=== PATIENT | female | born 1950 | race Two or more races ===

== ENCOUNTER 2021-09-25 18:25 | Inpatient (IN) | payer OTHER ==
[~2021-09-25] VITALS: Ht 152.4 cm; Wt 85.3 kg
[2021-09-25] MEDS: POTASSIUM CL. PREMIX PERIPHER. 50 ML IV SCH (01:02)
--- NOTE | 2021-09-25 19:07 | NUR ---
IV LINE IS ESTABLISHED. BLOOD SPECIMEN COLLECTED AND SENT TO THE LAB. THE LINE IS SALINE LOCKED.
--- NOTE | 2021-09-25 19:09 | NUR ---
COVID SWAB DONE AND SENT TO THE LAB
--- NOTE | 2021-09-25 19:22 | NUR ---
REPORT GIVEN TO NURSE ROB FOR VÍCTOR
[2021-09-25] MEDS ORDERED: ALBUTEROL FS 2.5 MG/3 ML VIAL.NEB CONTNEB ONE (19:30)
[2021-09-25] MEDS ORDERED: IPRATROPIUM NEB FS 0.5 MG/2.5 ML AMPUL.NEB NEB ONE (19:30)
[2021-09-25] MEDS ORDERED: IPRATROPIUM NEB FS 0.5 MG/2.5 ML AMPUL.NEB ONE (19:32)
[2021-09-25] MEDS ORDERED: ALBUTEROL FS 2.5 MG/3 ML VIAL.NEB ONE (19:32)
[2021-09-25] MEDS ORDERED: CEFTRIAXONE 1GM BAG (ER ONLY) 50 ML IV ONE ×2 (20:00→20:05)
[2021-09-25] MEDS ORDERED: CLINDAMYCIN 600 MG in IV D5W 100 ML IV ONE (20:00)
[2021-09-25] MEDS ORDERED: IV NS 0.9% 1,000 ML BAG IV ONE (20:00)
[2021-09-25] MEDS ORDERED: CLINDAMYCIN PHOSPHATE IV 600 MG/4 ML VIAL ONE (20:05)
[2021-09-25 20:15] LABS: BASOPHILS # (AUTO) 0.1 K/uL (0.0-0.2); BASOPHILS % (AUTO) 0.5 % (0.0-2.0); EOSINOPHILS % (AUTO) 0.2 % (0.0-6.0); HEMATOCRIT 33 % (33-45); HEMOGLOBIN 10.5 g/dL (11.5-14.8); LYMPHOCYTES # (AUTO) 4.6 K/uL (0.8-4.8); LYMPHOCYTES % (AUTO) 25.6 % (20.0-44.0); MEAN CORPUSCULAR HGB CONC 32 g/dl (31.0-36.0); MEAN CORPUSCULAR VOLUME 85 fL (82-100); MONOCYTES # (AUTO) 0.2 K/uL (0.1-1.30); MONOCYTES % (AUTO) 1.1 % (2.0-12.0); NEUTROPHILS # (AUTO) 12.9 K/uL (1.8-8.9); NEUTROPHILS % (AUTO) 72.6 % (43.0-81.0); PLATELET COUNT (AUTO) 540 K/uL (150-450); RED BLOOD CELL COUNT(AUTO) 3.93 MIL/uL (4.0-5.2); WHITE BLOOD COUNT (AUTO) 17.8 K/uL (4.3-11.0)
[2021-09-25 20:19] LABS: D-DIMER 4.93 mg/L(FEU (0.17-0.50)
--- NOTE | 2021-09-25 20:20 | NUR ---
CALLED [facility] AND SPOKE TO RICHI.
--- NOTE | 2021-09-25 20:23 | NUR ---
DR SARKAR ON THE PHONE W/ DR ERWIN
[2021-09-25] MEDS ORDERED: IOHEXOL-350 100 ML VIAL IV ONE (21:02)
[2021-09-25] MEDS ORDERED: IV NS 0.9% 250 ML IV ONE (21:02)
--- NOTE | 2021-09-25 21:40 | NUR ---
CELINE RIVERA: [phone]
--- NOTE | 2021-09-25 22:16 | NUR ---
LACTIC ACID 12.9
[2021-09-25 22:47] LABS: ALKALINE PHOSPHATASE 84 U/L (46-116); CALCIUM, SERUM 8.5 mg/dL (8.5-10.1); CARBON DIOXIDE 20 mmol/L (21-32); CHLORIDE 96 mmol/L (98-107); CREATININE 1.1 mg/dL (0.6-1.3); GLUCOSE 169 mg/dL (74-106); SODIUM SERUM 134 mmol/L (136-145); TOTAL PROTEIN, SERUM 6.5 g/dL (6.4-8.2)
[2021-09-25] MEDS ORDERED: MAG HYDROX/AL HYDROX/SIMETH 30 ML UDC PO PRN (23:00)
[2021-09-25] MEDS ORDERED: Z GUARD REMEDY 4 OZ OINT TP PRN (23:00)
[2021-09-25] MEDS ORDERED: IV NS 0.9% 1,000 ML IV ONE (23:00)
[2021-09-25] MEDS ORDERED: ONDANSETRON HCL/PF 4 MG/2 ML VIAL IVP PRN (23:00)
[2021-09-25 23:14] LABS: POTASSIUM 2.6 mmol/L (3.5-5.1)
[2021-09-25] MEDS ORDERED: DEXTROSE 50%-WATER 50 ML DISP.SYRIN IV PRN (23:30)
[2021-09-25] MEDS ORDERED: POTASSIUM CHLORIDE 20 MEQ TAB.PRT.SR PO ONE (23:30)
--- NOTE | 2021-09-25 23:52 | NUR ---
ASSIGNED TO 120
[2021-09-26] MEDS ORDERED: PIPERACILLIN /TAZOBACTAM 4.5 G in IV D5W 50 ML IV SCH
[2021-09-26] MEDS ORDERED: POTASSIUM CL. PREMIX PERIPHER. 150 ML ONE (00:57)
[2021-09-26] MEDS ORDERED: POTASSIUM CHLORIDE 20 MEQ TAB.PRT.SR PO ONE (00:58)
[2021-09-26] MEDS ORDERED: ENOXAPARIN SODIUM 60 MG/0.6 ML DISP.SYRIN SQ ONE (01:00)
[2021-09-26] MEDS ORDERED: ZOSYN IVPB 4.5 G in IV D5W 50ml IV ONE (01:00)
--- NOTE | 2021-09-26 01:25 | NUR ---
PATIENT TRANSFERRED UNDER ACLS
[2021-09-26 01:30] VITALS: BP 159/69
[2021-09-26] MEDS ORDERED: POTASSIUM CHLORIDE 10 MEQ TABLET.SA PO ONE (01:30)
--- NOTE | 2021-09-26 01:30 | NUR ---
FORM SETTER NOTES, RECEIVED 71 YEAR OLD FEMALE ADMITTED FROM ER DEPARTMENT VIA STRETCHER ACCOMPANIED BY 2 NURSES, PATIENT UNDER MEDICAL SERVICES OF MATY RAJPUT NP, WITH ADMITTING DX ACUTE RESPIRATORY FAILURE, PATIENT A/O X4 ABLE TO VERBALIZE NEEDS AND CONCERNS, PATIENT BREATHING EVEN AND UNLABORED, WITH SLIGHTLY SOB, AT 5LPM VIA NC 933%, VS 159/69, 113, 24, 98.6, WHEN ATTACHED TO TELE MONITOR PATIENT SHOW SINUS TACHY 120S AT THIS TIME, AFEBRILE SKIN INTACT, WITH IV SITE IN RIGHT AC 20G, PATENT AND INTACT, KCL IV INFUSING, 2 MORE BAGS TO GIVE, S/R OF BED UP X2, BED LOCKED AND IN LOWER POSITION, CALL LIGHT W/I REACH, WILL CONTINUE TO MONITOR CLOSELY.
[2021-09-26] MEDS: POTASSIUM CL. PREMIX PERIPHER. 50 ML IV SCH ×2 (02:24→03:19)
[2021-09-26] MEDS ORDERED: PIPERACILLIN /TAZOBACTAM 2.25 G VIAL IV ONE (03:22)
[2021-09-26] MEDS: VANCOMYCIN 1.25 GM in IV D5W 250 ML IV ONE ×2 (03:29→06:02)
[2021-09-26] MEDS ORDERED: VANCOMYCIN 1 GM VIAL ONE (05:56)
--- NOTE | 2021-09-26 06:23 | NUR ---
RN CLOSING NOTES, PATIENT ASLEEP AT THIS TIME, AROUSES TO VERBALS STIMULI, A/O ABLE TO VERBALIZE NEEDS AND CONCERNS, NO SOB/ACUTE DISTRESS NOTED, CONT ON 5LPM VIA NC WITH O2 >94%, NO SIGNIFICANT CHANGE IN CONDITION, STILL SINUS TACHY WITH HR IN LOW 100S, PCR PENDING, ON ISOLATION PRECAUTIONS PER PROTOCOL, K+ REPLACED, ATB GIVEN AND FOR LACTIC ACID 5.8 AN ORDER FOR NS AT 100ML/HR, WILL CONTINUE TO MONITOR AND ENDORSE TO ONCOMING NURSE.
[2021-09-26] MEDS ORDERED: ISOS60TA72 PO (06:39)
[2021-09-26] MEDS ORDERED: METF-440 PO (06:39)
[2021-09-26] MEDS ORDERED: LEVO50TA8 PO (06:39)
[2021-09-26] MEDS ORDERED: LOSA50TA39 PO (06:39)
[2021-09-26] MEDS ORDERED: ALBU8.5H8 INH (06:39)
[2021-09-26] MEDS ORDERED: FLUT16SP16 BNOSTRILS (06:39)
[2021-09-26] MEDS ORDERED: ATOR10TA PO (06:39)
[2021-09-26] MEDS: IV NS 0.9% 1,000 ML IV PRN (07:04)
--- NOTE | 2021-09-26 07:20 | NUR ---
RN NOTE REPORT REC'D FROM BARBARA HENDERSON. PT IS IN BED. A/A/OX4. VERBALLY RESPONSIVE IN ROMANSH. IN NO ACUTE DISTRESS. BREATHING EVEN AND UNLABORED. DENIES PAIN OR NEED AT THIS TIME. IVF INFUSING WELL TO RAC. SINUS TACHY ON THE MONITOR. SAFETY AND ISOLATION PRECAUTIONS OBSERVED. CALL LIGHT WITHIN REACH. WILL CONTINUE TO MONITOR.
[2021-09-26] MEDS: BLOOD SUGAR DIAGNOSTIC 1 EACH STRIP IN SCH ×4 (08:10→22:30)
[2021-09-26 08:12] LABS: ALANINE AMINOTRANSFERASE 41 U/L (12-78); ASPARTATE AMINOTRANSFERASE 44 U/L (15-37); BILIRUBIN,TOTAL 0.2 mg/dL (0.2-1.0); UREA NITROGEN, BLOOD 13 mg/dL (7-18)
[2021-09-26] MEDS: PANTOPRAZOLE 40 MG TABLET.DR PO SCH (08:21)
[2021-09-26] MEDS: INSULIN REGULAR, HUMAN 100 UNIT/ML 3 ML VIAL SQ PRN ×4 (08:23→23:00)
[2021-09-26] MEDS ORDERED: ZOSYN IVPB 3.375 G in IV D5W 50ml IV SCH (10:00)
[2021-09-26] MEDS ORDERED: HYDR100T27 PO (10:07)
[2021-09-26] MEDS ORDERED: ASPI-1169 PO (10:07)
[2021-09-26] MEDS ORDERED: METO100T14 PO (10:07)
[2021-09-26] MEDS ORDERED: FERR325T23 PO (10:07)
[2021-09-26] MEDS ORDERED: PROP1DRO4 OP (10:07)
[2021-09-26] MEDS ORDERED: PANT40TA49 PO (10:07)
[2021-09-26 10:44] LABS: BASOPHILS # (AUTO) 0.1 K/uL (0.0-0.2); BASOPHILS % (AUTO) 0.2 % (0.0-2.0); EOSINOPHILS % (AUTO) 1.7 % (0.0-6.0); HEMATOCRIT 29 % (33-45); HEMOGLOBIN 9.2 g/dL (11.5-14.8); LYMPHOCYTES % (AUTO) 10.4 % (20.0-44.0); MEAN CORPUSCULAR HGB CONC 32 g/dl (31.0-36.0); MEAN CORPUSCULAR VOLUME 83 fL (82-100); MONOCYTES # (AUTO) 1.2 K/uL (0.1-1.30); MONOCYTES % (AUTO) 4.2 % (2.0-12.0); NEUTROPHILS # (AUTO) 23.8 K/uL (1.8-8.9); NEUTROPHILS % (AUTO) 83.5 % (43.0-81.0); PLATELET COUNT (AUTO) 432 K/uL (150-450); RED BLOOD CELL COUNT(AUTO) 3.43 MIL/uL (4.0-5.2); WHITE BLOOD COUNT (AUTO) 28.6 K/uL (4.3-11.0)
[2021-09-26] MEDS ORDERED: VIT B12 (11:23)
[2021-09-26] MEDS ORDERED: omega (11:23)
[2021-09-26 11:44] LABS: CREATININE 0.8 mg/dL (0.6-1.3); MAGNESIUM 1.4 mg/dL (1.8-2.4); POTASSIUM 3.8 mmol/L (3.5-5.1)
[2021-09-26] MEDS: ENOXAPARIN SODIUM 40 MG/0.4 ML DISP.SYRIN SQ SCH (13:07)
[2021-09-26] MEDS: CEFTRIAXONE 2 G in IV D5W 100 ML IV SCH (14:32)
[2021-09-26] MEDS: LOSARTAN POTASSIUM 50 MG TABLET PO SCH (17:00)
[2021-09-26] MEDS: FERROUS SULFATE (325 MG) 325 MG/TAB TABLET PO SCH (17:00)
[2021-09-26] MEDS: hydrALAZINE HCL 50 MG TABLET PO SCH (18:04)
[2021-09-26] MEDS: VANCOMYCIN 1 GM in IV D5W 250ml IV SCH (18:05)
[2021-09-26] MEDS: METFORMIN 500 MG TABLET PO SCH (18:06)
--- NOTE | 2021-09-26 18:49 | NUR ---
RN NOTE DR. MARKS NOTIFIED OF MAGNESIUM LEVEL 1.4. AWAITING ANSWER.
[2021-09-26] MEDS ORDERED: Magnesium 1GM/D5W 100ML PREMIX 100 ML IV SCH (19:00)
--- NOTE | 2021-09-26 19:02 | NUR ---
received a call from lab c/o weathers mg level drawn yesterday is 0.8,todays magnesium is 1.4.dr. martin notified and ordered 1 gram mg bolus.
--- NOTE | 2021-09-26 19:06 | NUR ---
RN NOTE PTS CONDITION UNCHANGED. A/A/OX4. AMBULATORY WITH ASSSIST. NO SOB. ON 3LP SAT 98%. ST ON MONITOR. DENIES ANY PAIN. NEEDS ATTENDED. SAFETY PRECAUTION OBSERVED. CALLED DTR TO BRING EYE DROPS MED RX DOESN'T CARRY THIS MED BUT NO ANSWER.
[2021-09-26] MEDS: IPRATROPIUM/ALBUTEROL INHALER IH SCH (19:30)
--- NOTE | 2021-09-26 19:50 | NUR ---
RN NOTE PT IS A/O X4 PASHTO SPEAKING, UNDERSTANDS VIETNAMESE MINIMAL. PT DENIES PAIN, SOB. ON 5L NC. PT IS ABLE TO AMBULATE. WITH ASSIST. IV SITE INTACT. RUNNING IVF ORDERED. ALL NEEDS ATTENDED. WILL CONT TO MONITOR. SAFETY MEASURES IN PLACE. BED LOCKED IN LOWEST POSITION. HOB ELEVATED SIDE RAILS UP X3. CALL LIGHT WITHIN REACH.
[2021-09-26 20:00] VITALS: BP 158/81
[2021-09-26] MEDS: METOPROLOL TARTRATE 50 MG TABLET PO SCH (20:33)
[2021-09-26 22:39] LABS: BILIRUBIN,URINE NEGATIVE (NEGATIVE); COLOR,URINE YELLOW (YELLOW); LEUKOCYTE ESTERASE ,URINE NEGATIVE (NEGATIVE); NITRITE, URINE NEGATIVE (NEGATIVE); PROTEIN,URINE NEGATIVE (NEGATIVE); UGLUCOSE NEGATIVE (NEGATIVE); UROBILINOGEN,URINE 0.2 EU/dL (0.2)
[2021-09-26 23:17] LABS: BAND % (MANUAL) 1 % (0.0-5.0); LYMPHOCYTES % (MANUAL) 10 % (16-48); MONOCYTES % (MANUAL) 8 % (0-11.0); NEUTROPHILS % (MANUAL) 81 (42-76)
[2021-09-27] VITALS: BP 145/82
--- NOTE | 2021-09-27 00:28 | NUR ---
REPORT GIVEN TO BEATRIZ FOR CONTINUATION OF CARE
--- NOTE | 2021-09-27 00:30 | NUR ---
RN NOTES, RECEIVED PATIENT FROM MARGRET JIMENEZ FOR CONTINUATION OF CARE, PATIENT ASLEEP AT 5LPM VIA NC WITH O2 >95%, NO SOB/ACUTE DISTRESS NOTED WII CONTINUE TO MONITOR CLOSELY.
[2021-09-27] MEDS: IPRATROPIUM/ALBUTEROL INHALER IH SCH ×4 (01:30→20:37)
[2021-09-27] MEDS: IV NS 0.9% 1,000 ML IV PRN ×2 (02:40→23:22)
[2021-09-27 04:00] VITALS: BP 152/72
[2021-09-27] MEDS: VANCOMYCIN 1 GM in IV D5W 250ml IV SCH (05:31)
--- NOTE | 2021-09-27 06:41 | NUR ---
RN CLOSING NOTES, PATIENT ASLEEP AT THIS TIME, AROUSES TO VERBALS STIMULI, NO SOB/ACUTE DISTRESS NOTED, CONT ON 5LPM VIA NC WITH O2 >95%, NO SIGNIFICANT CHANGE IN CONDITION DURING THE NIGHT, NSR IN TELE MONITOR WITH HR 80S AT THIS TIME, CONTINUE ON IVF ORDERED, PCR PENDING STILL PENDING, ISOLATION PRECAUTIONS PER PROTOCOL,WILL ENDORSE CONTINUITY OF CARE TO ONCOMING NURSE.
[2021-09-27] MEDS: BLOOD SUGAR DIAGNOSTIC 1 EACH STRIP IN SCH ×4 (07:37→21:44)
--- NOTE | 2021-09-27 07:45 | NUR ---
RN OPENING NOTES RECEIVED PT IN BED RESTING COMFORTABLY. NO SIGNS OF SOB OR DISTRESS. PT IS A/0 X4, INDONESIAN SPEAKING. PT IS ON 5L NC AND HAS R AC 20 G WITH NS AT 100CC/HR. ALL SAFETY MEASURES IN PLACE. BED IN LOWEST LOCKED POSITION, SIDE RAILS UP X 3, CALL LIGHT WITHIN REACH. WILL CONTINUE TO MONITOR.
[2021-09-27 07:47] LABS: CALCIUM, SERUM 8.9 mg/dL (8.5-10.1); CREATININE 0.7 mg/dL (0.6-1.3); POTASSIUM 3.1 mmol/L (3.5-5.1)
[2021-09-27] MEDS: PANTOPRAZOLE 40 MG TABLET.DR PO SCH ×2 (07:59→08:31)
[2021-09-27] MEDS: LEVOTHYROXINE SODIUM 50 MCG TABLET PO SCH (07:59)
[2021-09-27] MEDS: METFORMIN 500 MG TABLET PO SCH ×2 (07:59→17:26)
[2021-09-27 08:00] VITALS: BP 156/80
[2021-09-27] MEDS: METOPROLOL TARTRATE 50 MG TABLET PO SCH ×2 (08:22→21:44)
[2021-09-27] MEDS: LOSARTAN POTASSIUM 50 MG TABLET PO SCH ×2 (08:22→17:24)
[2021-09-27] MEDS: ASPIRIN 81 MG TAB.CHEW PO SCH (08:22)
[2021-09-27] MEDS: FERROUS SULFATE (325 MG) 325 MG/TAB TABLET PO SCH ×2 (08:22→17:24)
[2021-09-27] MEDS: hydrALAZINE HCL 50 MG TABLET PO SCH ×3 (08:23→17:23)
[2021-09-27] MEDS: ENOXAPARIN SODIUM 40 MG/0.4 ML DISP.SYRIN SQ SCH (08:25)
[2021-09-27] MEDS: INSULIN REGULAR, HUMAN 100 UNIT/ML 3 ML VIAL SQ PRN ×3 (08:26→18:18)
[2021-09-27] MEDS: FLUTICASONE PROPIONATE 16 GM BOTTLE NS SCH (08:30)
[2021-09-27] MEDS: POTASSIUM CHLORIDE 20 MEQ TAB.PRT.SR PO SCH ×2 (09:44→10:39)
[2021-09-27 12:00] VITALS: BP 138/76
--- NOTE | 2021-09-27 12:13 | NUR ---
RN NOTES NO INSULIN GIVEN. PT BS 80.
[2021-09-27 13:12] LABS: BASOPHILS # (AUTO) 0.2 K/uL (0.0-0.2); EOSINOPHILS % (AUTO) 0.7 % (0.0-6.0); HEMATOCRIT 27 % (33-45); HEMOGLOBIN 8.7 g/dL (11.5-14.8); LYMPHOCYTES # (AUTO) 2.2 K/uL (0.8-4.8); LYMPHOCYTES % (AUTO) 13.8 % (20.0-44.0); MEAN CORPUSCULAR HGB CONC 32 g/dl (31.0-36.0); MEAN CORPUSCULAR VOLUME 84 fL (82-100); MONOCYTES # (AUTO) 0.9 K/uL (0.1-1.30); MONOCYTES % (AUTO) 5.8 % (2.0-12.0); NEUTROPHILS # (AUTO) 12.7 K/uL (1.8-8.9); NEUTROPHILS % (AUTO) 78.7 % (43.0-81.0); PLATELET COUNT (AUTO) 336 K/uL (150-450); RED BLOOD CELL COUNT(AUTO) 3.21 MIL/uL (4.0-5.2); WHITE BLOOD COUNT (AUTO) 16.1 K/uL (4.3-11.0)
[2021-09-27] MEDS: CEFTRIAXONE 2 G in IV D5W 100 ML IV SCH (15:03)
[2021-09-27 16:00] VITALS: BP 157/73
[2021-09-27] MEDS: POLYVINYL ALCOHOL 15 ML BOTTLE OP SCH ×2 (17:23→20:37)
--- NOTE | 2021-09-27 18:19 | NUR ---
RN NOTES INSULIN NOT GIVEN. PT BS 108.
--- NOTE | 2021-09-27 19:08 | NUR ---
RN CLOSING NOTE PATIENT RESTING AND COMFORTABLE AT THIS TIME, AROUSES TO VERBAL STIMULI, NO SOB/ACUTE DISTRESS NOTED, CONT ON 5L NC WITH O2 >95%, NO SIGNIFICANT CHANGE IN CONDITION DURING SHIFT, NSR IN TELE MONITOR, CONTINUE ON IVF ORDERED, PCR STILL PENDING, ISOLATION PRECAUTIONS PER PROTOCOL, ALL SAFETY MEASURES IN PLACE, BED IN LOWEST LOCKED POSITION, CALL LIGHT WITHIN REACH, SIDE RAILS UP X 3. WILL ENDORSE TO ONCOMING ASSEMBLY STOCK SUPERVISOR NURSE.
--- NOTE | 2021-09-27 19:50 | NUR ---
TELE/RN OPENING NOTE RECEIVED PATIENT RESTING IN BED. AWAKE, ALERT AND ORIENTED X 4. ABLE TO MAKE NEEDS KNOWN. DENIES PAIN AT THIS TIME. CONTINUES ON O2 5L VIA NC WITH NO S/SX OF RESPIRATORY DISTRESS NOTED. IV ACCESS TO RIGHT AC #20G INTACT, PATENT AND SALINE LOCKED. CONTINUES ON IV ABX. PATIENT IS AMBULATORY WITH ASSIST. CONTINUES ON TELE MONITOR WITH CURRENT READING SR. CALL LIGHT WITHIN REACH. ASPIRATION, FALL AND SAFETY PRECAUTIONS MAINTAINED. WILL CONTINUE TO MONITOR.
[2021-09-27 20:00] VITALS: BP 167/68
[2021-09-28] VITALS (7 sets, daily range): BP systolic 134–157; BP diastolic 65–81
[2021-09-28] MEDS: IPRATROPIUM/ALBUTEROL INHALER IH SCH ×4 (02:16→20:00)
--- NOTE | 2021-09-28 06:50 | NUR ---
TELE/RN CLOSING NOTE PATIENT CURRENTLY RESTING IN BED. AWAKE, ALERT AND ORIENTED X 4. ABLE TO MAKE NEEDS KNOWN. DENIES PAIN AT THIS TIME. CONTINUES ON O2 5L VIA NC WITH NO S/SX OF RESPIRATORY DISTRESS NOTED. IV ACCESS TO RIGHT AC #20G INTACT, PATENT AND SALINE LOCKED. CONTINUES ON IV ABX. PATIENT IS AMBULATORY WITH ASSIST. CONTINUES ON TELE MONITOR WITH CURRENT READING SR. CALL LIGHT WITHIN REACH. ASPIRATION, FALL AND SAFETY PRECAUTIONS MAINTAINED. WILL ENDORSE PLAN OF CARE TO ONCOMING SHIFT.
--- NOTE | 2021-09-28 07:54 | NUR ---
RN NOTE RECEIVED PT AWAKE IN BED, ALERT AND VERBALLY RESPONSIVE. WITH O2 @5L VIA NC, NOT IN RESPIRATORY DISTRESS WITH O2 SAT OF 99. RAC G20 IN PLACE WITH IVF RUNNING AT 100CC/HR., TOLERATING WELL. WILL CONTINUE TO MONITOR. ALL SAFETY MEASURES IN PLACE.
[2021-09-28] MEDS: LEVOTHYROXINE SODIUM 50 MCG TABLET PO SCH (08:00)
[2021-09-28] MEDS: BLOOD SUGAR DIAGNOSTIC 1 EACH STRIP IN SCH ×4 (08:00→20:53)
[2021-09-28] MEDS: PANTOPRAZOLE 40 MG TABLET.DR PO SCH ×2 (08:00→09:23)
--- NOTE | 2021-09-28 08:27 | NUR ---
per [facility] pcr negative.
[2021-09-28] MEDS: FLUTICASONE PROPIONATE 16 GM BOTTLE NS SCH (09:03)
[2021-09-28] MEDS: POLYVINYL ALCOHOL 15 ML BOTTLE OP SCH ×4 (09:04→21:26)
[2021-09-28] MEDS: hydrALAZINE HCL 50 MG TABLET PO SCH ×3 (09:05→18:01)
[2021-09-28] MEDS: METFORMIN 500 MG TABLET PO SCH ×2 (09:05→18:03)
[2021-09-28] MEDS: ASPIRIN 81 MG TAB.CHEW PO SCH (09:05)
[2021-09-28] MEDS: FERROUS SULFATE (325 MG) 325 MG/TAB TABLET PO SCH ×2 (09:05→18:02)
[2021-09-28] MEDS: LOSARTAN POTASSIUM 50 MG TABLET PO SCH ×2 (09:06→18:01)
[2021-09-28] MEDS: ENOXAPARIN SODIUM 40 MG/0.4 ML DISP.SYRIN SQ SCH (09:08)
[2021-09-28] MEDS: METOPROLOL TARTRATE 50 MG TABLET PO SCH ×2 (09:23→21:25)
[2021-09-28] MEDS: IV NS 0.9% 1,000 ML IV PRN (11:02)
[2021-09-28] MEDS: CEFTRIAXONE 2 G in IV D5W 100 ML IV SCH (14:48)
--- NOTE | 2021-09-28 15:59 | NUR ---
RN NOTE PT TRANSFERRED TO MED/SURG [facility], IN STABLE CONDITION.CONTINUES ON O2 @3L VIA NC. NOT IN RESPIRATORY DISTRESS. V/S WNL. ENDORSED TO BARBARA MAYER. PT WAS ACCOMPANIED BY DAUGHTER .
--- NOTE | 2021-09-28 16:00 | NUR ---
RN NOTES PATIENT AWAKE IN BED RESTING, AWAKE. A/O X4. CANE FROM [place]. NO S/S OF PAIN NOTED AT THIS TIME. ON 5L OXYGEN VIA NC, NO DISTRESS OR SHORTNESS OF BREATH NOTED. IV RAC #20G, INTACT AND PATENT. BELONGING LIST CHECKED, SKIN ASSESSMENT DONE, V/S STABLE. FALL AND SAFETY MEASURES IN PLACE, BED IN LOW AND LOCK POSITION, CALL LIGHT AND TABLE WITHIN EASY REACH, SIDE RAILS UP X2. WILL CONTINUE TO MONITOR.
[2021-09-28] MEDS: ACETAMINOPHEN 325 MG TABLET PO PRN (19:52)
--- NOTE | 2021-09-28 19:56 | NUR ---
RN CLOSING NOTES PATIENT AWAKE IN BED RESTING, AWAKE. A/O X4. NO S/S OF PAIN NOTED AT THIS TIME. ON 5L OXYGEN VIA NC, NO DISTRESS OR SHORTNESS OF BREATH NOTED. IV RAC #20G, INTACT AND PATENT. FALL AND SAFETY MEASURES IN PLACE, BED IN LOW AND LOCK POSITION, CALL LIGHT AND TABLE WITHIN EASY REACH, SIDE RAILS UP X2. WILL ENDORSE TO PSYCH SPECIALIST.
[2021-09-28] MEDS: INSULIN REGULAR, HUMAN 100 UNIT/ML 3 ML VIAL SQ PRN (22:25)
[2021-09-29] VITALS: BP 124/66
[2021-09-29] MEDS: IPRATROPIUM/ALBUTEROL INHALER IH SCH ×3 (01:30→13:24)
[2021-09-29 04:10] VITALS: BP 134/72
[2021-09-29] MEDS: IV NS 0.9% 1,000 ML IV PRN (06:27)
[2021-09-29] MEDS: PANTOPRAZOLE 40 MG TABLET.DR PO SCH ×2 (06:39→09:00)
[2021-09-29] MEDS: LEVOTHYROXINE SODIUM 50 MCG TABLET PO SCH (06:40)
[2021-09-29] MEDS: BLOOD SUGAR DIAGNOSTIC 1 EACH STRIP IN SCH ×4 (06:40→22:09)
[2021-09-29 07:31] LABS: BASOPHILS % (AUTO) 0.5 % (0.0-2.0); EOSINOPHILS % (AUTO) 3.4 % (0.0-6.0); HEMATOCRIT 25 % (33-45); HEMOGLOBIN 8.5 g/dL (11.5-14.8); LYMPHOCYTES # (AUTO) 2.2 K/uL (0.8-4.8); LYMPHOCYTES % (AUTO) 23.3 % (20.0-44.0); MEAN CORPUSCULAR HGB CONC 34 g/dl (31.0-36.0); MEAN CORPUSCULAR VOLUME 83 fL (82-100); MONOCYTES # (AUTO) 0.9 K/uL (0.1-1.30); MONOCYTES % (AUTO) 9.9 % (2.0-12.0); NEUTROPHILS # (AUTO) 5.9 K/uL (1.8-8.9); NEUTROPHILS % (AUTO) 62.9 % (43.0-81.0); PLATELET COUNT (AUTO) 387 K/uL (150-450); RED BLOOD CELL COUNT(AUTO) 3.07 MIL/uL (4.0-5.2); WHITE BLOOD COUNT (AUTO) 9.3 K/uL (4.3-11.0)
[2021-09-29 07:48] LABS: CALCIUM, SERUM 8.6 mg/dL (8.5-10.1); CREATININE 0.7 mg/dL (0.6-1.3); POTASSIUM 2.9 mmol/L (3.5-5.1)
[2021-09-29 07:56] LABS: MAGNESIUM 1.5 mg/dL (1.8-2.4); PHOSPHORUS 3.3 mg/dL (2.5-4.9)
--- NOTE | 2021-09-29 08:00 | NUR ---
RN OPENING NOTE PT IN BED RESTING. NO SIGNS OF DISTRESS. NO COMPLAINT OF PAIN OR NAUSEA. IV LINE CHECKED AND FLUSHES WELL. SAFETY MEASURES IN PLACE. SIDE RAILS RAISED. BED LOWERED. CALL LIGHT WITHIN REACH. WILL CONTINUE TO MONITOR.
[2021-09-29 08:36] VITALS: BP 148/79
[2021-09-29] MEDS: hydrALAZINE HCL 50 MG TABLET PO SCH ×3 (08:37→16:46)
[2021-09-29] MEDS: METFORMIN 500 MG TABLET PO SCH ×2 (08:37→17:32)
[2021-09-29] MEDS: ASPIRIN 81 MG TAB.CHEW PO SCH (08:38)
[2021-09-29] MEDS: FERROUS SULFATE (325 MG) 325 MG/TAB TABLET PO SCH ×2 (08:39→16:46)
[2021-09-29] MEDS: LOSARTAN POTASSIUM 50 MG TABLET PO SCH ×2 (08:39→16:46)
[2021-09-29] MEDS: METOPROLOL TARTRATE 50 MG TABLET PO SCH ×2 (08:40→21:22)
[2021-09-29] MEDS: ENOXAPARIN SODIUM 40 MG/0.4 ML DISP.SYRIN SQ SCH (08:51)
[2021-09-29] MEDS: FLUTICASONE PROPIONATE 16 GM BOTTLE NS SCH (09:00)
[2021-09-29] MEDS: POLYVINYL ALCOHOL 15 ML BOTTLE OP SCH ×4 (09:00→21:23)
[2021-09-29] MEDS: POTASSIUM CHLORIDE 20 MEQ TAB.PRT.SR PO SCH ×3 (09:42→11:30)
[2021-09-29] MEDS ORDERED: MAGNESIUM OXIDE 400 MG TABLET PO ONE (10:00)
[2021-09-29] MEDS: CEFTRIAXONE 2 G in IV D5W 100 ML IV SCH (15:39)
[2021-09-29 16:16] VITALS: BP 135/66
[2021-09-29] MEDS: ACETAMINOPHEN 325 MG TABLET PO PRN (18:01)
--- NOTE | 2021-09-29 18:31 | NUR ---
RN CLOSING NOTE PT IN BED RESTING. ALL NEEDS MET. PT IN COMFORTABLE POSITION. NO SIGNS OF DISTRESS. NO COMPLAINT OF PAIN OR NAUSEA. IV LINE INTACT. FLUSHES WELL. CALL LIGHT WITHIN REACH. BED LOWERED. SIDE RAILS RAISED. WILL GIVE REPORT TO NIGHT NURSE FOR VÍCTOR.
--- NOTE | 2021-09-29 19:30 | NUR ---
MS RN OPENING NOTE RECEIVED PATIENT IN BED. A/OX4. 2 FAMILY MEMBERS AT BEDSIDE WITH PATIENT AT THIS TIME. ABLE TO MAKE NEEDS KNOWN. NO S/S OF APPARENT DISTRESS ON 3 LPM OF O2 VIA NC. DENIES PAIN AT THIS TIME. L. FA IV ACCESS INTACT AND PATENT-- NS RUNNING AT 100ML/HR. NEEDS ATTENDED AT THE MOMENT. WALKER NOTED AT BEDSIDE. SAFETY IN PLACE. WILL CONTINUE WITH PLAN OF CARE FOR PATIENT.
[2021-09-29 20:00] VITALS: BP 147/71
--- NOTE | 2021-09-29 22:00 | NUR ---
MS RN NOTE BLOOD SUGAR 84. NO COVERAGE NEEDED.
[2021-09-30] MEDS: IV NS 0.9% 1,000 ML IV PRN (05:42)
[2021-09-30] MEDS: BLOOD SUGAR DIAGNOSTIC 1 EACH STRIP IN SCH ×4 (06:45→22:48)
[2021-09-30] MEDS: INSULIN REGULAR, HUMAN 100 UNIT/ML 3 ML VIAL SQ PRN ×3 (06:49→17:26)
--- NOTE | 2021-09-30 06:54 | NUR ---
MS RN NOTE BLOOD SUGAR 90. NO COVERAGE NEEDED.
--- NOTE | 2021-09-30 07:08 | NUR ---
MS RN CLOSING NOTE PATIENT IN BED WITH EYES CLOSED. EASY TO AROUSE. A/OX4. NO S/S OF APPARENT DISTRESS ON 3LPM OF OXYGEN VIA NC. DENIES PAIN. IV NS @100CC/HR RUNNING AT THIS TIME. ALL NEEDS ATTENDED. ALL SCHEDULED MEDICATIONS ADMINISTERED. SAFETY KEPT IN PLACE THE WHOLE SHIFT. WILL ENDORSE TO MORNING SHIFT RN FOR CONTINUITY OF CARE.
[2021-09-30 08:00] VITALS: BP 137/71
[2021-09-30] MEDS: ASPIRIN 81 MG TAB.CHEW PO SCH (08:42)
[2021-09-30] MEDS: FERROUS SULFATE (325 MG) 325 MG/TAB TABLET PO SCH ×2 (08:42→17:13)
[2021-09-30] MEDS: METOPROLOL TARTRATE 50 MG TABLET PO SCH ×2 (08:42→20:48)
[2021-09-30] MEDS: PANTOPRAZOLE 40 MG TABLET.DR PO SCH ×2 (08:42)
[2021-09-30] MEDS: METFORMIN 500 MG TABLET PO SCH ×2 (08:42→17:13)
[2021-09-30] MEDS: LOSARTAN POTASSIUM 50 MG TABLET PO SCH ×2 (08:43→17:13)
[2021-09-30] MEDS: hydrALAZINE HCL 50 MG TABLET PO SCH ×3 (08:43→17:13)
[2021-09-30] MEDS: LEVOTHYROXINE SODIUM 50 MCG TABLET PO SCH (08:44)
[2021-09-30] MEDS: ENOXAPARIN SODIUM 40 MG/0.4 ML DISP.SYRIN SQ SCH (08:45)
[2021-09-30] MEDS: FLUTICASONE PROPIONATE 16 GM BOTTLE NS SCH (08:56)
[2021-09-30] MEDS: POLYVINYL ALCOHOL 15 ML BOTTLE OP SCH ×4 (08:56→20:52)
--- NOTE | 2021-09-30 09:00 | NUR ---
RN NOTES PATIENT ABLE TO TAKE AM MEDS; INHALER ADMINISTERED TO PATIENT. NO COMPLAINT OF PAIN NOR SOB AT THIS TIME.
[2021-09-30] MEDS: IPRATROPIUM/ALBUTEROL INHALER IH SCH ×3 (09:01→20:54)
[2021-09-30] MEDS: ACETAMINOPHEN 325 MG TABLET PO PRN ×2 (11:16→18:32)
[2021-09-30] MEDS: CEFTRIAXONE 2 G in IV D5W 100 ML IV SCH (14:10)
[2021-09-30 16:00] VITALS: BP 132/56
[2021-09-30] MEDS: GLUCERNA SHAKE 237 ML CAN PO SCH (18:18)
--- NOTE | 2021-09-30 18:52 | NUR ---
RN NOTES PATIENT REQUESTED TYLENOL FOR BACK PAIN, UNABLE TO SCALE; OFFERED OTHER FORMS OF ANALGESIA BUT PATIENT STATES TYLENOL WORKS OKAY FOR HER. DTR AT BEDSIDE W/ THE PATIENT. CONTINUES ON O2 VIA NC, NO RESPIRATORY DISTRESS. IV LINE INTACT AND PATENT; IVF D/C'D AT THIS TIME. AMBULATES W/ ASSIST. DUE MEDS GIVEN TODAY. SAFETY MEASURES MAINTAINED. WILL ENDORSE TO FARM EQUIPMENT ASSEMBLER RN FOR VÍTCOR.
--- NOTE | 2021-09-30 19:40 | NUR ---
MS RN OPENING NOTE PATIENT AWAKE IN BED WITH DAUGHTER AT BEDSIDE, ALERT/ORIENTED X 4, PATIENT PERSIAN SPEAKING, ABLE TO MAKE NEEDS KNOWN. PATIENT ON 3 LPM OF O2 VIA NC, NO S/S OF DISTRESS OR SOB NOTED, BREATHING EVEN AND UNLABORED. IV ACCESS ON LEFT FOREARM #22G INTACT AND FLUSHING WELL, SALINE LOCKED. PATIENT AMBULATORY WITH WALKER AND SBA. SAFETY MEASURES IN PLACE: CALL LIGHT WITHIN REACH, SIDE RAILS UP X 2, BED LOCKED IN LOW POSITION, BED ALARM ON. WILL CONTINUE TO MONITOR PATIENT
[2021-09-30 20:00] VITALS: BP 150/71
[2021-09-30 22:53] LABS: BASOPHILS % (AUTO) 0.5 % (0.0-2.0); EOSINOPHILS % (AUTO) 4.1 % (0.0-6.0); HEMATOCRIT 26 % (33-45); HEMOGLOBIN 8.5 g/dL (11.5-14.8); LYMPHOCYTES # (AUTO) 2.3 K/uL (0.8-4.8); LYMPHOCYTES % (AUTO) 24.2 % (20.0-44.0); MEAN CORPUSCULAR HGB CONC 33 g/dl (31.0-36.0); MEAN CORPUSCULAR VOLUME 83 fL (82-100); NEUTROPHILS # (AUTO) 5.6 K/uL (1.8-8.9); NEUTROPHILS % (AUTO) 60.2 % (43.0-81.0); PLATELET COUNT (AUTO) 425 K/uL (150-450); RED BLOOD CELL COUNT(AUTO) 3.12 MIL/uL (4.0-5.2); WHITE BLOOD COUNT (AUTO) 9.3 K/uL (4.3-11.0)
[2021-09-30 23:07] LABS: CALCIUM, SERUM 8.2 mg/dL (8.5-10.1); CREATININE 0.9 mg/dL (0.6-1.3); MAGNESIUM 1.4 mg/dL (1.8-2.4); PHOSPHORUS 3.1 mg/dL (2.5-4.9)
[2021-10-01] MEDS: IPRATROPIUM/ALBUTEROL INHALER IH SCH (02:44)
--- NOTE | 2021-10-01 07:10 | NUR ---
MS RN OPENING NOTE RECEIVED PATIENT AWAKE IN BED, ALERT/ORIENTED X 4, PATIENT SWAZI SPEAKING, ABLE TO MAKE NEEDS KNOWN. PATIENT ON 3 LPM OF O2 VIA NC, NO S/S OF DISTRESS OR SOB NOTED, BREATHING EVEN AND UNLABORED. IV ACCESS ON LEFT FOREARM #22G INTACT AND FLUSHING WELL, SALINE LOCKED. PATIENT AMBULATORY WITH WALKER AND SBA. SAFETY MEASURES IN PLACE: CALL LIGHT WITHIN REACH, SIDE RAILS UP X 2, BED LOCKED IN LOW POSITION, BED ALARM ON. WILL CONTINUE TO MONITOR
[2021-10-01] MEDS: METFORMIN 500 MG TABLET PO SCH ×2 (07:15→17:08)
[2021-10-01] MEDS: LEVOTHYROXINE SODIUM 50 MCG TABLET PO SCH (07:15)
[2021-10-01] MEDS: PANTOPRAZOLE 40 MG TABLET.DR PO SCH ×2 (07:15→08:14)
[2021-10-01] MEDS: BLOOD SUGAR DIAGNOSTIC 1 EACH STRIP IN SCH ×3 (07:15→16:42)
[2021-10-01 07:48] LABS: BASOPHILS # (AUTO) 0.1 K/uL (0.0-0.2); BASOPHILS % (AUTO) 0.6 % (0.0-2.0); EOSINOPHILS % (AUTO) 4.2 % (0.0-6.0); HEMATOCRIT 26 % (33-45); HEMOGLOBIN 8.5 g/dL (11.5-14.8); LYMPHOCYTES # (AUTO) 2.2 K/uL (0.8-4.8); LYMPHOCYTES % (AUTO) 24.9 % (20.0-44.0); MEAN CORPUSCULAR HGB CONC 33 g/dl (31.0-36.0); MEAN CORPUSCULAR VOLUME 83 fL (82-100); MONOCYTES # (AUTO) 0.8 K/uL (0.1-1.30); MONOCYTES % (AUTO) 8.9 % (2.0-12.0); NEUTROPHILS # (AUTO) 5.4 K/uL (1.8-8.9); NEUTROPHILS % (AUTO) 61.4 % (43.0-81.0); PLATELET COUNT (AUTO) 450 K/uL (150-450); RED BLOOD CELL COUNT(AUTO) 3.15 MIL/uL (4.0-5.2); WHITE BLOOD COUNT (AUTO) 8.8 K/uL (4.3-11.0)
[2021-10-01] MEDS: GLUCERNA SHAKE 237 ML CAN PO SCH ×2 (07:48→17:08)
[2021-10-01 08:00] VITALS: BP 164/71
[2021-10-01] MEDS: ASPIRIN 81 MG TAB.CHEW PO SCH (08:12)
[2021-10-01] MEDS: FERROUS SULFATE (325 MG) 325 MG/TAB TABLET PO SCH ×2 (08:12→17:08)
[2021-10-01] MEDS: METOPROLOL TARTRATE 50 MG TABLET PO SCH ×2 (08:13→20:19)
[2021-10-01] MEDS: hydrALAZINE HCL 50 MG TABLET PO SCH ×3 (08:13→17:08)
[2021-10-01] MEDS: POLYVINYL ALCOHOL 15 ML BOTTLE OP SCH ×4 (08:13→20:20)
[2021-10-01] MEDS: FLUTICASONE PROPIONATE 16 GM BOTTLE NS SCH (08:14)
[2021-10-01] MEDS: ENOXAPARIN SODIUM 40 MG/0.4 ML DISP.SYRIN SQ SCH (08:15)
[2021-10-01] MEDS: LOSARTAN POTASSIUM 50 MG TABLET PO SCH ×2 (08:16→17:08)
[2021-10-01 08:21] LABS: CALCIUM, SERUM 8.8 mg/dL (8.5-10.1); CREATININE 0.7 mg/dL (0.6-1.3); POTASSIUM 3.1 mmol/L (3.5-5.1)
[2021-10-01] MEDS ORDERED: CEFD300C3 PO (10:27)
[2021-10-01] MEDS: ACETAMINOPHEN 325 MG TABLET PO PRN (10:40)
--- NOTE | 2021-10-01 12:18 | NUR ---
RN NOTE OXYGEN TRIALS PERFORMED, PATIENT <87% ON ROOM AIR. PLACED BACK ON 3LPM VIA NASAL CANNULAR. WILL CONTINUE TO MONITOR
[2021-10-01] MEDS: POTASSIUM CHLORIDE 20 MEQ TAB.PRT.SR PO SCH ×2 (12:27→13:23)
[2021-10-01] MEDS: CEFTRIAXONE 2 G in IV D5W 100 ML IV SCH (14:00)
[2021-10-01 16:00] VITALS: BP 155/75
[2021-10-01] MEDS: INSULIN REGULAR, HUMAN 100 UNIT/ML 3 ML VIAL SQ PRN (16:43)
--- NOTE | 2021-10-01 18:38 | NUR ---
MS RN CLOSING NOTE PATIENT AWAKE IN BED, ALERT/ORIENTED X 4, PATIENT LITHUANIAN SPEAKING, ABLE TO MAKE NEEDS KNOWN. PATIENT ON 3 LPM OF O2 VIA NC, NO S/S OF DISTRESS OR SOB NOTED, BREATHING EVEN AND UNLABORED. PATIENT AMBULATORY WITH WALKER AND SBA. PATIENT HAS DISCHARGE INSTRUCTIONS BOTH VERBALLY AND IN WRITTEN FORM. PATIENT VERBALIZED UNDERSTANDING. IV ACCESS REMOVED CATHETER TIP INTACT PRESSURE DRESSING APPLIED. AWAITING FOR O2 TO BE DELIVERED. SAFETY MEASURES IN PLACE: CALL LIGHT WITHIN REACH, SIDE RAILS UP X 2, BED LOCKED IN LOW POSITION, BED ALARM ON. WILL ENDORSE TO ONCOMING SHIFT
--- NOTE | 2021-10-01 19:30 | NUR ---
MS RN OPENING NOTE RECEIVED PT AWAKE IN BED. A/O X 4, URUGUAYAN SPEAKING, ABLE TO MAKE NEEDS KNOWN. PATIENT ON 3 LPM OF O2 VIA NC, NO S/S OF DISTRESS OR SOB NOTED, BREATHING EVEN AND UNLABORED. IV ACCESS REMOVED DUE TO DISCHARGE STATUS. AWAITING FOR O2 TO BE DELIVERED. SAFETY PRECAUTIONS IN PLACE. BED IN LOWEST LOCKED POSITION, HOB ELEVATED, SIDE RAILS UP X2, AND CALL LIGHT AND TABLE WITHIN REACH. WILL CONTINUE TO MONITOR.
[2021-10-01 20:19] VITALS: BP 151/66
--- NOTE | 2021-10-01 20:45 | NUR ---
MS INFORMAL WAITER/WAITRESS NOTE PT DISCHARGED TO HOME WITH DAUGHTER AT THIS TIME. PT IS MEDICALLY STABLE AND CLEARED FOR DISCHARGE BY DR MARKS. ALL PT CARE, NEEDS, MEDICATIONS, AND TREATMENT ADMINISTERED ANTICIPATED PER ORDER. DISCHARGE INSTRUCTIONS PROVIDED TO PT. PT VERBALIZED UNDERSTANDING. PT KEPT CLEAN AND DRY. BELONGINGS LIST ACCOUNTED FOR AND SIGNED BY PT. IV ACCESS REMOVED BY PREVIOUS SHIFT. NO SIGNS OF BLEEDING NOTED. ID BAND REMOVED. PT TRANSPORTED TO [facility] VIA WHEELCHAIR, ACCOMPANIED BY ME AND PT'S DAUGHTER. CHARGE NURSE LISA AND DR MARKS MADE AWARE.
== END 2021-10-01 20:40 | disposition home or self-care (01) | DRG 871 ==
LOC: ER 18:30 → TELE 09-26 00:19 → TELE1 09-26 00:22 → MEDSG1 09-28 10:21 → MED 09-28 15:42
PROVIDERS: ADMIT Nurse Practitioner Family; ATTEND Internal Medicine
DX: A41.9 Sepsis, unspecified organism (principal); J96.01 Acute respiratory failure with hypoxia; J69.0 Pneumonitis due to inhalation of food and vomit; J95.89 Other postprocedural complications and disorders of respiratory system, not elsewhere classified; E87.2 Acidosis; N17.9 Acute kidney failure, unspecified; R65.20 Severe sepsis without septic shock; E03.9 Hypothyroidism, unspecified; E11.9 Type 2 diabetes mellitus without complications; J45.909 Unspecified asthma, uncomplicated; E78.5 Hyperlipidemia, unspecified; E87.5 Hyperkalemia; Z20.822 Contact with and (suspected) exposure to COVID-19; D64.9 Anemia, unspecified; I10 Essential (primary) hypertension; E87.6 Hypokalemia; Z98.890 Other specified postprocedural states; Y84.8 Other medical procedures as the cause of abnormal reaction of the patient, or of later complication, without mention of misadventure at the time of the procedure; Y92.89 Other specified places as the place of occurrence of the external cause; E83.42 Hypomagnesemia; K57.30 Diverticulosis of large intestine without perforation or abscess without bleeding
CPT/HCPCS: 36415; 71045-TC; 80048-TC; 80076-TC; 80202-TC; 82962-TC; 83605-TC; 83735-TC; 83880; 84100-TC; 84484-TC; 85025-TC; 85378-TC; 85730-TC; 86140-TC; 86803; 87040-TC; 87081-TC; 87449; 87806; 93307-TC; C9803; G0378; J0696; J1650; J1815; J2543; J3370; J3475; J3480; J3490; J7030; J7050; J7060; Q9967; U0003